=== PATIENT | female | born 1965 | race Caucasian/White ===

== ENCOUNTER 2016-12-17 06:32 | Inpatient (IN) | payer BC ==
[~2016-12-17] VITALS: Ht 160 cm; Wt 64.4 kg
[2016-12-17] MEDS ORDERED: LORAZEPAM INJ 2 MG/ML VIAL ONE (06:40)
--- NOTE | 2016-12-17 06:40 | NUR ---
51 YO FEMALE BB RA FROM HOME. PT IS ALERT X 1, PER EMS THIS IS PATIENT BASE LINE. PER EMS, CAREGIVER HEARD PATIENT CALLED, CALLED EMS,. UNKNOWN IF PATIENT HAD A SIEZURE, PT WAS GOWNED, LPACED ON CURED MEATS SUPERVISOR. SKIN WARM AND DRY, RR EVEN AND UNLABORED. NAD NOTED, AWAITING ORDERS FROM PROVIDER
--- NOTE | 2016-12-17 06:41 | NUR ---
MD BELLE AT BED SIDE FOR EVAL
--- NOTE | 2016-12-17 06:49 | NUR ---
MEDICATED PT ORDERED
[2016-12-17] MEDS ORDERED: LORAZEPAM INJ 2 MG/ML VIAL IVP ONE (07:00)
[2016-12-17] MEDS ORDERED: IV NS 0.9% 500 ML BAG IV ONE (07:00)
[2016-12-17 07:12] LABS: BASOPHILS % (AUTO) 0.5 % (0.0-2.0); EOSINOPHILS # (AUTO) 0.1 /CMM (0.0-0.7); EOSINOPHILS % (AUTO) 1.7 % (0.0-6.0); HEMATOCRIT 39 % (33-45); HEMOGLOBIN 13.2 g/dL (11.5-14.8); LYMPHOCYTES # (AUTO) 3.9 /CMM (0.8-4.8); LYMPHOCYTES % (AUTO) 55.5 % (20.0-44.0); MEAN CORPUSCULAR HEMOGLOBIN 33 PG (26.0-33.0); MEAN CORPUSCULAR HGB CONC 34 g/dl (31.0-36.0); MEAN CORPUSCULAR VOLUME 97 fL (82-100); MONOCYTES # (AUTO) 0.5 /CMM (0.1-1.30); MONOCYTES % (AUTO) 6.9 % (2.0-12.0); NEUTROPHILS # (AUTO) 2.5 /CMM (1.8-8.9); NEUTROPHILS % (AUTO) 35.4 % (43.0-81.0); PLATELET COUNT (AUTO) 146 /CMM (150-450); RDW COEFFICIENT OF VARIATION 13.1 (11.5-15.0); RED BLOOD CELL COUNT(AUTO) 4.01 MIL/uL (4.0-5.2)
[2016-12-17 07:32] LABS: CALCIUM, SERUM 8.2 mg/dL (8.5-10.1); CARBON DIOXIDE 29 mmol/L (21-32); CHLORIDE 109 mmol/L (98-107); CREATININE 0.8 mg/dL (0.6-1.3); GLUCOSE 77 mg/dL (74-106); POTASSIUM 4.1 mmol/L (3.5-5.1); SODIUM SERUM 145 mmol/L (136-145); UREA NITROGEN, BLOOD 21 mg/dL (7-18)
--- NOTE | 2016-12-17 07:33 | NUR ---
PT TAKEN TO CT
[2016-12-17 07:36] LABS: PHENOBARBITAL 1 ug/ml (15-39); PHENYTOIN (DILANTIN) < 0.5 ug/ml (10.0-20.0); VALPROIC ACID 116 ug/mL (50-100)
[2016-12-17 07:40] LABS: ALANINE AMINOTRANSFERASE 23 U/L (12-78); ALBUMIN 3.1 g/dL (3.4-5.0); ALCOHOL, BLOOD < 3 mg/dL (0-0); ALKALINE PHOSPHATASE 52 U/L (46-116); ASPARTATE AMINOTRANSFERASE 19 U/L (15-37); BILIRUBIN,DIRECT 0.1 mg/dL (0.0-0.2); BILIRUBIN,TOTAL 0.4 mg/dL (0.2-1.0); TOTAL PROTEIN, SERUM 6.7 g/dL (6.4-8.2)
[2016-12-17 07:46] LABS: INR 1.01 (0.87-1.13); PROTHROMBIN TIME 10.8 SECS (9.5-12.7)
--- NOTE | 2016-12-17 07:52 | NUR ---
PT BACK FROM CT
[2016-12-17 08:00] VITALS: BP 98/56
[2016-12-17] MEDS ORDERED: ESCI10TA PO (08:09)
[2016-12-17] MEDS ORDERED: AMLO1CAP5 PO (08:09)
[2016-12-17] MEDS ORDERED: VALP250S PO ×2 (08:09→08:18)
[2016-12-17] MEDS ORDERED: RIVA1PAT3 TD (08:09)
--- NOTE | 2016-12-17 08:15 | NUR ---
panel on-call paged
--- NOTE | 2016-12-17 08:49 | NUR ---
GAVE REPORT TO RINKU OLIVEIRA TELE ADMITTING DX SYNCOPE ADMITTING MD DR VERA
[2016-12-17 09:30] VITALS: BP 98/56
[2016-12-17] MEDS ORDERED: ONDANSETRON HCL/PF 4 MG/2 ML VIAL IVP PRN (09:30)
[2016-12-17] MEDS ORDERED: ACETAMINOPHEN 325 MG TABLET PO PRN (09:30)
[2016-12-17] MEDS ORDERED: LORAZEPAM INJ 2 MG/ML VIAL IV PRN (09:30)
[2016-12-17] MEDS ORDERED: HYDROCODONE/APAP 5/325MG 1 EACH TABLET PO PRN (09:30)
[2016-12-17] MEDS ORDERED: MAG HYDROX/AL HYDROX/SIMETH 30 ML UDC PO PRN (09:30)
[2016-12-17] MEDS ORDERED: MAGNESIUM HYDROXIDE 30 ML UDC PO PRN (09:30)
[2016-12-17] MEDS ORDERED: Z GUARD REMEDY 2 OZ OINT TP PRN (09:30)
--- NOTE | 2016-12-17 09:30 | NUR ---
LAST TRIMMER NOTES RECEIVED PATIENT ALERT, CONFUSED WITH FAMILY AT BEDSIDE WITH RADIO COMMUNICATIONS MECHANICIAN CAREGIVER. NO SOB OR ACUTE DISTRESS NOTED. FAMILY STATES PATIENT BASELINE IS CONFUSED. PATIENT WAS HOSPITALIZED DUE TO PATIENT SUFFERING A SEIZURE. IV INTACT PATENT ON RIGHT HAND. CALL LIGHT WITHIN REACH. BED IN LOW LOCKED POSITION WILL CONTINUE TO MONITOR.
[2016-12-17] MEDS: VALPROIC ACID 250 MG/5 ML UDC PO SCH ×2 (10:02→17:21)
[2016-12-17] MEDS: ENOXAPARIN SODIUM 30 MG/0.3 ML DISP.SYRIN SQ SCH (10:04)
[2016-12-17] MEDS: IV NS 0.9% 1,000 ML IV PRN (10:05)
[2016-12-17] MEDS: BENAZEPRIL HCL 10 MG TABLET PO SCH (11:30)
[2016-12-17] MEDS: AMLODIPINE BESYLATE 5 MG TABLET PO SCH (11:30)
[2016-12-17] MEDS: RIVASTIGMINE TARTRATE 4.6 MG PATCH.TD24 TD SCH (12:08)
--- NOTE | 2016-12-17 14:00 | NUR ---
SENIOR QA ANALYST NOTES PATIENT SEEN AND EVALUATED BY DR. VERA ORDERS NOTED AND CARRIED OUT.
[2016-12-17 16:00] VITALS: BP 105/57
--- NOTE | 2016-12-17 18:42 | NUR ---
INGOT CAR OPERATOR NOTES PATIENT IN BED RESTING CONFUSED. FRIEND AND CAREGIVER AT BEDSIDE. ALL DUE MEDICATIONS ADMINISTER. ALL NEEDS MET. PERIPHERAL IV INTACT PATENT ON RIGHT HAND. WILL ENDORSE CARE TO PM SHIFT.
--- NOTE | 2016-12-17 19:50 | NUR ---
RN INITIAL NOTES: RECEIVED REPORT FROM RINKU OLIVEIRA, PT IN BED, ALERT, BUT NOT ORIENTED, PER FAMILY PT BEEN CONFUSED FOR 4YRS NOW AND THIS IS HER BASELINE, PT HAS ADVANCED DEMENTIA, FRIENDS AT BEDSIDE BUT WILL HAVE CAREGIVER TONIGHT, PT HAS RIGHT HAND IV ACCESS PATENT AND FLUSHING WELL, INFUSING AT NS AT 75ML/HR, ON SINUS LOW 60'S, PT TRYING TO GET OUT OF BED, SAFETY PRECAUTIONS FOR FALL INITIATE CALL LIGHT IN REACH, SEIZURE PRECAUTIONS AND SUCTION SET UP SECURED, WILL CONTINUE TO MONITOR
[2016-12-17 20:00] VITALS: BP 93/57
--- NOTE | 2016-12-17 22:18 | NUR ---
RN NOTES: PER BUSINESS APPLICATIONS SPECIALIST DAVID PT'S HR LOWEST 44, CHECKED ON THE PT, PT IS AWAKE, CAREGIVER AT BED SIDE, VS TAKEN AND RECORDED, BP 102/59 HR 55 RR 18 SPO2 94% ON RA, WILL CONTINUE MONITORING THE PT
[2016-12-17 22:19] VITALS: BP 102/59
--- NOTE | 2016-12-17 22:57 | NUR ---
rn notes: contacted dr johnson regarding pt's hr, lowest 44, right now on sinus louie hr 46, vs relayed to md, pt asymptomatic and currently on ivf ns at 75 ml/hr, md asked if pt on betablocker, so far based on home meds and emar there's no beta johnna orderd for the pt, also informed md about pt's code status, pt dnr with copies on the chart, per md to just placed the order, for low hr, per md just continue monitoring the pt
[2016-12-18] VITALS: BP 103/55
--- NOTE | 2016-12-18 | NUR ---
RN NOTES: LOWEST HR 30'S CHECKED THE PT, PT ASLEEP, WOKE UP THE PT, PT'S HR WENT UP TO 45, VS TAKEN AND RECORDED, WILL CONTINUE MONITORING THE PT
[2016-12-18] MEDS: IV NS 0.9% 1,000 ML IV PRN (00:08)
--- NOTE | 2016-12-18 00:10 | NUR ---
RN NOTES: PT ASLEEP, HR ON SINUS DANIEL HR 46, RESPIRATION EVEN AND UNLABORED, NO FACIAL GRIMACE NOTED, WILL CONTINUE TO MONITOR THE PT, CAREGIVER AT BED SIDE
--- NOTE | 2016-12-18 02:53 | NUR ---
RN NOTES: WENT TO PT'S ROOM MULTIPLE TIMES DUE TO PT'S HR DROPPING TO 37, 35, 3LOW 30'S, PT IS AROUSABLE, AFTER 5-10MINS PT WENT BACK TO SLEEP AND HR DROPS AGAIN TO LOW 40'S AND LOW 30'S, VS STABLE, PER MD CONTINUE MONITORING THE PT
[2016-12-18 04:00] VITALS: BP 132/81
[2016-12-18 06:34] LABS: BASOPHILS % (AUTO) 0.3 % (0.0-2.0); EOSINOPHILS # (AUTO) 0.1 /CMM (0.0-0.7); EOSINOPHILS % (AUTO) 1.8 % (0.0-6.0); HEMATOCRIT 40 % (33-45); HEMOGLOBIN 13.6 g/dL (11.5-14.8); LYMPHOCYTES # (AUTO) 3.7 /CMM (0.8-4.8); MEAN CORPUSCULAR HEMOGLOBIN 33 PG (26.0-33.0); MEAN CORPUSCULAR HGB CONC 34 g/dl (31.0-36.0); MEAN CORPUSCULAR VOLUME 97 fL (82-100); MONOCYTES # (AUTO) 0.7 /CMM (0.1-1.30); MONOCYTES % (AUTO) 9.5 % (2.0-12.0); NEUTROPHILS # (AUTO) 2.7 /CMM (1.8-8.9); NEUTROPHILS % (AUTO) 37.4 % (43.0-81.0); PLATELET COUNT (AUTO) 141 /CMM (150-450); RDW COEFFICIENT OF VARIATION 12.9 (11.5-15.0); RED BLOOD CELL COUNT(AUTO) 4.07 MIL/uL (4.0-5.2); WHITE BLOOD COUNT (AUTO) 7.2 K/uL (4.3-11.0)
[2016-12-18 07:04] LABS: CALCIUM, SERUM 8.4 mg/dL (8.5-10.1); CREATININE 0.6 mg/dL (0.6-1.3); MAGNESIUM 1.9 mg/dL (1.8-2.4); PHOSPHORUS 3.3 mg/dL (2.5-4.9); POTASSIUM 3.9 mmol/L (3.5-5.1)
--- NOTE | 2016-12-18 07:11 | NUR ---
RN CLOSING NOTES: PT IN BED, AWAKE, REMAINS VERY CONFUSED, NO FACIAL GRIMACE NOTED,ABLE TO TALK ONLY "OKAY" TO WHATEVER QUESTION YOU ASKED. CAREGIVER AT BED SIDE, RIGHT HAND IV REMAINS PATENT AND FLUSHING WELL, INFUSING WITH NS AT 75ML/HR. BLE KEPT OFFLOADED. VS REMAINS STABLE, NEEDS ATTENDED, FOR EEG IN AM AND AWAITING TO BE SEEN BY NEURO, DR MURRAY, SAFETY PRECAUTIONS REMAINS ENGAGED, CALL LIGHT IN REACH, WILL ENDORSE TO DAY RN FOR RICK.
[2016-12-18] MEDS: PANTOPRAZOLE 40 MG TABLET.DR PO SCH (07:30)
[2016-12-18] MEDS: ENOXAPARIN SODIUM 30 MG/0.3 ML DISP.SYRIN SQ SCH (09:27)
[2016-12-18] MEDS: VALPROIC ACID 250 MG/5 ML UDC PO SCH ×2 (09:27→17:22)
[2016-12-18] MEDS: AMLODIPINE BESYLATE 5 MG TABLET PO SCH (09:28)
[2016-12-18] MEDS: CALCIUM CARB 600MG /VIT D 1 EACH TABLET PO SCH (09:29)
[2016-12-18] MEDS: BENAZEPRIL HCL 10 MG TABLET PO SCH (09:29)
[2016-12-18] MEDS: ESCITALOPRAM OXALATE (10 MG) 10 MG TABLET PO SCH (09:29)
[2016-12-18] MEDS: RIVASTIGMINE TARTRATE 4.6 MG PATCH.TD24 TD SCH (09:31)
--- NOTE | 2016-12-18 12:23 | NUR ---
WOUND CARE CONSULT PATIENT SEEN AND SKIN INTEGRITY ASSESSMENT DONE. SEE UTILITY TECH ASSESSMENT IN [facility]CS FOR TODAY ALONG WITH ALL RECOMMENDATIONS. PATIENT WITH CURRENT KELLI AT 19, UP SITTING IN THE CHAIR. THERE ARE NO OPEN WOUNDS NOTED AND THE SACRAL AREA IS NOTED TO BE INTACT WITH BLANCHABLE REDNESS. WILL SEE PRN. Addendum: 12/18/16 at 1232 by MITRA BERMUDEZ WNDNU Amended: Links added.
[2016-12-18] MEDS: OXCARBAZEPINE 150 MG TABLET PO SCH ×2 (14:56→20:54)
[2016-12-18 16:00] VITALS: BP 108/66
--- NOTE | 2016-12-18 19:56 | NUR ---
RN INITIAL TELE NOTES: PT IN BED, AWAKE, REMAINS VERY CONFUSED, NO FACIAL GRIMACE NOTED,ABLE TO TALK ONLY "OKAY" TO WHATEVER QUESTION YOU ASKED. CAREGIVER AT BED SIDE, RIGHT HAND IV REMAINS PATENT AND FLUSHING WELL, INFUSING WITH NS AT 75ML/HR. BLE KEPT OFFLOADED. VS REMAINS STABLE, NEEDS ATTENDED, FOR EEG IN AM AND AWAITING TO BE SEEN BY NEURO, DR MURRAY, RACHEL POWERS CALLED TO F/U ON THE DISCHARGE PLAN FOR PT, AND SUGGESTED THAT SHE WILL TRY TO FIND NEURO CONSULT SOON POSSIBLE. SAFETY PRECAUTIONS REMAINS ENGAGED, CALL LIGHT IN REACH, WILL ENDORSE TO DAY RN FOR RICK.
[2016-12-18 20:03] VITALS: BP 102/60
[2016-12-19] VITALS: BP 92/54
[2016-12-19 04:00] VITALS: BP 99/57
[2016-12-19 04:31] VITALS: BP 99/57
--- NOTE | 2016-12-19 06:28 | NUR ---
RN CLOSING TELE NOTES: PT IN BED, AWAKE, REMAINS VERY CONFUSED, NO FACIAL GRIMACE NOTED,ABLE TO TALK ONLY "OKAY" TO WHATEVER QUESTION YOU ASKED. CAREGIVER AT BED SIDE, RIGHT HAND IV REMAINS PATENT AND FLUSHING WELL, INFUSING WITH NS AT 75ML/HR. BLE KEPT OFFLOADED. VS REMAINS STABLE, NEEDS ATTENDED, FOR , RACHEL POWERS CALLED TO F/U ON THE DISCHARGE PLAN FOR PT, AND SUGGESTED THAT, IF PT SEEN BY NEUROLOGIST, OK TO D/C HOME, WILL ENDORSE TO AM SHIFT TO CALL GIO FOR D/C PLANING. SAFETY PRECAUTIONS REMAINS ENGAGED, CALL LIGHT IN REACH, WILL ENDORSE TO DAY RN FOR
[2016-12-19 07:17] LABS: BASOPHILS % (AUTO) 0.5 % (0.0-2.0); EOSINOPHILS # (AUTO) 0.1 /CMM (0.0-0.7); EOSINOPHILS % (AUTO) 2.4 % (0.0-6.0); HEMATOCRIT 38 % (33-45); HEMOGLOBIN 13.4 g/dL (11.5-14.8); LYMPHOCYTES # (AUTO) 2.9 /CMM (0.8-4.8); LYMPHOCYTES % (AUTO) 48.8 % (20.0-44.0); MEAN CORPUSCULAR HEMOGLOBIN 34 PG (26.0-33.0); MEAN CORPUSCULAR HGB CONC 35 g/dl (31.0-36.0); MEAN CORPUSCULAR VOLUME 95 fL (82-100); MONOCYTES # (AUTO) 0.7 /CMM (0.1-1.30); NEUTROPHILS # (AUTO) 2.2 /CMM (1.8-8.9); NEUTROPHILS % (AUTO) 37.3 % (43.0-81.0); PLATELET COUNT (AUTO) 147 /CMM (150-450); RDW COEFFICIENT OF VARIATION 12.7 (11.5-15.0); RED BLOOD CELL COUNT(AUTO) 3.96 MIL/uL (4.0-5.2)
--- NOTE | 2016-12-19 07:20 | NUR ---
RN OPEN NOTES RECEIVED REPORT FROM CONTROL SYSTEMS ENG NURSE. IV SITE INFILTRATING, STOPPED INFUSION. WILL ATTEMPT NEW IV SITE. WILL CONTINUE TO MONITOR AND ASSESS PATIENT THROUGH OUT MY SHIFT.
[2016-12-19 07:59] LABS: CALCIUM, SERUM 8.5 mg/dL (8.5-10.1); CREATININE 0.8 mg/dL (0.6-1.3); PHOSPHORUS 4.1 mg/dL (2.5-4.9); POTASSIUM 4.5 mmol/L (3.5-5.1)
[2016-12-19 08:00] VITALS: BP 96/50
[2016-12-19] MEDS: RIVASTIGMINE TARTRATE 4.6 MG PATCH.TD24 TD SCH (08:27)
[2016-12-19] MEDS: ESCITALOPRAM OXALATE (10 MG) 10 MG TABLET PO SCH (08:27)
[2016-12-19] MEDS: VALPROIC ACID 250 MG/5 ML UDC PO SCH (08:27)
[2016-12-19] MEDS: PANTOPRAZOLE 40 MG TABLET.DR PO SCH (08:28)
[2016-12-19] MEDS: OXCARBAZEPINE 150 MG TABLET PO SCH (08:28)
[2016-12-19] MEDS: CALCIUM CARB 600MG /VIT D 1 EACH TABLET PO SCH (08:28)
[2016-12-19] MEDS: ENOXAPARIN SODIUM 30 MG/0.3 ML DISP.SYRIN SQ SCH (08:34)
--- NOTE | 2016-12-19 11:00 | NUR ---
BOYFRIEND AT BEDSIDE
--- NOTE | 2016-12-19 11:25 | NUR ---
IV SITE DISCONTINUE. NO NEW SITE NEEDED. PATIENT IS DISCHARGE
[2016-12-19 12:00] VITALS: BP 105/66
[2016-12-19] MEDS ORDERED: CALC-838 PO (12:57)
[2016-12-19] MEDS ORDERED: OXCA150T PO (12:57)
--- NOTE | 2016-12-19 13:22 | NUR ---
A R COLLECTIONS REP NOTES PATIENT DISCHARGE ORDER RECEIVED AND CARRIED OUT. PATIENT IS LEAVING IN A STABLE CONDITION. NO SIGNS AND SYMPTOMS OF DISTRESS OR PAIN. IV SITE REMOVED. ID BAND REMOVED. TELE BOX REMOVED. ALL DISCHARGE INSTRUCTIONS EXPLAINED TO CAREGIVER CLAUDIA AND BOYFRIENErika DUARTE. BOTH VERBALIZED UNDERSTANDING. NO NEW CONCERNS IDENTIFIED DURING DISCHARGE. ALL PERSONAL BELONGING WITH PATIENT AT TIME OF DISCHARGE; BELONGING FORM SIGNED AND PLACED IN THE CHART. DISCHARGE INSTRUCTION FORM SIGNED AND PLACED IN THE CHART. PICTURES WERE TAKEN AND PLACED IN THE CHART. PATIENT NEW MEDICATIONS EXPLAINED TO BOYFRIEND AND NEW PRESCRIPTION WERE GIVEN. PATIENT WAS TRANSPORTED HOME VIA A PRIVATE CAR ACCOMPANIED BY HER BOYFRIEND AND A EMTS. IPARESH RN, ESCORTED PATIENT TO [facility] VIA A WHEELCHAIR.
== END 2016-12-19 13:32 | disposition home or self-care (01) | DRG 100 ==
LOC: ER 06:33 → TELE1 08:56
PROVIDERS: ADMIT Internal Medicine; ATTEND Internal Medicine
DX: G40.909 Epilepsy, unspecified, not intractable, without status epilepticus (principal); G93.49 Other encephalopathy; E44.1 Mild protein-calorie malnutrition; R47.01 Aphasia; F02.80 Dementia in other diseases classified elsewhere, unspecified severity, without behavioral disturbance, psychotic disturbance, mood disturbance, and anxiety; F32.9 Major depressive disorder, single episode, unspecified; G30.9 Alzheimer's disease, unspecified; I10 Essential (primary) hypertension; I95.2 Hypotension due to drugs; T46.5X5A Adverse effect of other antihypertensive drugs, initial encounter; Y92.009 Unspecified place in unspecified non-institutional (private) residence as the place of occurrence of the external cause
CPT/HCPCS: 36415; 70450-TC; 71010-TC; 80048-TC; 80061-TC; 80076-TC; 80164-TC; 80184-TC; 80185-TC; 82272-TC; 83735-TC; 84100-TC; 84484-TC; 85025-TC; 85730-TC; 87081-TC; 95819-TC; 97001-TC; A4606; G0480; J1650; J2060; J7030; J7040; Z7610